=== PATIENT | male | born 1990 | race African-American/Black ===

== ENCOUNTER 2016-07-08 20:05 | Emergency (ER) | payer MEDICAID ==
[~2016-07-08] VITALS: Ht 185.4 cm; Wt 68.0 kg
[2016-07-08 20:50] VITALS: BP 118/72
[2016-07-08] MEDS ORDERED: BACTRIM-DS1 EA ORAL (21:21)
[2016-07-08 21:52] LABS: APPEARANCE,URINE CLEAR; KETONES,URINE NEGATIVE (NEGATIVE); LEUKOCYTE ESTERASE ,URINE NEGATIVE (NEGATIVE); NITRITE,URINE NEGATIVE (NEGATIVE); PH,URINE 6.5 (4.5-8.0); PROTEIN,URINE NEGATIVE (NEGATIVE); UROBILINOGEN,URINE NORMAL MG/DL (0.0-1.0)
[2016-07-08] MEDS ORDERED: Bactrim DS (160mg/800mg) tab ORAL ONE (22:00)
[2016-07-08 22:05] LABS: BACTERIA,URINE FEW /HPF; WBC,URINE 0-2 /HPF (0 - 0)
--- NOTE | 2016-07-10 07:47 | Emergency Room Report ---
History of Present Illness General Chief Complaint: Male Urogenital Problems Source: Patient Present Illness HPI Patient is a 25-year-old male presented after increased hematuria. Patient gradual onset of symptoms of the past one day. Patient denied any vomiting or abdominal pain. He had not been having any fever. He denied any recent flank pain. He denied penile discharge or other complaints. Allergies: Coded Allergies: No Known Allergies (Unverified , 07/08/16) Patient History Past Medical History: see triage record Reviewed Nursing Documentation: PMH: Agreed, PSxH: Agreed Nursing Documentation-PMH Past Medical History: No Stated History Review of Systems All Other Systems: negative except mentioned in HPI Physical Exam Vital Signs Date Time Temp Pulse Resp B/P Pulse Ox O2 Delivery O2 Flow Rate FiO2 07/08/16 20:40 97.5 61 17 118/72 100 Room Air General Appearance: well appearing, no apparent distress, alert, GCS 15 Head: normocephalic, atraumatic ENT: hearing grossly normal, normal voice Neck: full range of motion, supple Respiratory: no respiratory distress, speaking full sentences Cardiovascular #1: normal inspection, normal peripheral pulses, regular rate, rhythm Gastrointestinal: normal inspection, normal bowel sounds, non tender Musculoskeletal: normal inspection, back normal, no calf tenderness Neurologic: normal inspection, alert, oriented x3, responsive, normal gait Psychiatric: mood/affect normal Skin: no rash Medical Decision Making Diagnostic Impression: Primary Impression: Hematuria ER Course The patient is a 25-year-old male who presented after having increased hematuria. Differential diagnosis included was not limited to urinary tract infection, aortic aneurysm, kidney stone, bladder cancer, prostate disease among others. The patient reported having gross hematuria which was not associated with any flank pain. The patient was empirically given antibiotics. he was advised followup with urology. He is advised to have urine rechecked in 2 days. Labs Test 07/08/16 20:46 Urine Color Pale yellow Urine Appearance Clear Urine pH 6.5 (4.5-8.0) Urine Specific [place] 1.005 (1.005-1.035) Urine Protein Negative (NEGATIVE) Urine Glucose (UA) Negative (NEGATIVE) Urine Ketones Negative (NEGATIVE) Urine Occult Blood 5+ (NEGATIVE) Urine Nitrite Negative (NEGATIVE) Urine Bilirubin Negative (NEGATIVE) Urine Urobilinogen Normal MG/DL (0.0-1.0) Urine Leukocyte Esterase Negative (NEGATIVE) Urine RBC 10-15 /HPF (0 - 0) Urine WBC 0-2 /HPF (0 - 0) Urine Squamous Epithelial Cells None /LPF (NONE/OCC) Urine Bacteria Few /HPF (NONE) Last Vital Signs Date Time Temp Pulse Resp B/P Pulse Ox O2 Delivery O2 Flow Rate FiO2 07/08/16 21:49 97.5 81 17 118/72 100 Room Air Status: unchanged Disposition: HOME, SELF-CARE Condition: Stable Scripts Trimethoprim/Sulfamethoxazole (Bactrim Ds Tablet) 1 Each Tablet 1 TAB ORAL TWICE A DAY, #20 TAB Prov: Bernabe Luque 07/08/16 Referrals: [facility],REFERRING (PCP) Patient Instructions: Hematuria, Adult Bernabe Luque Jul 10, 2016 07:47
== END 2016-07-08 21:49 | disposition home or self-care (01) ==
LOC: EMR 21:05
DX: R31.9 Hematuria, unspecified (principal)
CPT/HCPCS: 81003; 99283

== ENCOUNTER 2016-07-10 19:47 | Emergency (ER) | payer MEDICAID ==
[~2016-07-10] VITALS: Ht 185.4 cm; Wt 68.0 kg
[~2016-07-10 19:47] MED LIST: BACTRIM-DS1 EA ORAL
--- NOTE | 2016-07-10 21:29 | Emergency Room Report ---
History of Present Illness General Chief Complaint: General Complaint Source: Patient Present Illness HPI [id number] came back to ED for 2-day recheck of hematuria seen on UA 2 days ago. Was Rx-ed Bactrim for presumed UTI. Patient endorses lifting heavy metal at job and recent increase in working out intensity at gym with weight-lifting. he showed me picture of urine from 2 days ago, gross hematuria. He denies dysuria, polyuria, discharge, sexual intercourse. States he is abstinent. Allergies: Coded Allergies: No Known Allergies (Unverified , 07/08/16) Patient History Past Medical History: none Past Surgical History: none Pertinent Family History: none Social History: Denies: alcohol use, drug use, smoking Immunizations: UTD Reviewed Nursing Documentation: PMH: Agreed, PSxH: Agreed Nursing Documentation-PMH Past Medical History: No History, Except For Review of Systems All Other Systems: negative except mentioned in HPI Physical Exam Vital Signs Date Time Temp Pulse Resp B/P Pulse Ox O2 Delivery O2 Flow Rate FiO2 07/10/16 20:13 63 14 114/65 100 Room Air Sp02 EP Interpretation: reviewed, normal General Appearance: normal inspection, well appearing, no apparent distress, alert Head: atraumatic ENT: normal ENT inspection, hearing grossly normal, normal voice Neck: normal inspection, full range of motion, supple, no bony tend Respiratory: normal inspection, lungs clear, normal breath sounds, no respiratory distress, no retraction, no wheezing Cardiovascular #1: regular rate, rhythm, no edema Gastrointestinal: normal inspection, normal bowel sounds, non tender, soft, no guarding, no hernia Genitourinary: no CVA tenderness Musculoskeletal: normal inspection, back normal, normal range of motion, Deng' s Sign negative Neurologic: normal inspection, alert, oriented x3, responsive, records administrator III-XII nml as tested, speech normal Psychiatric: normal inspection, judgement/insight normal, mood/affect normal Skin: normal inspection, normal color, no rash Lymphatic: normal inspection Medical Decision Making Diagnostic Impression: Primary Impression: Hematuria ER Course UA from 07/08: no wbc or leuks or nitrites. Unlikely UTI Advised to STOP Bactrim UA today: gross inspection is clear. No hematuria, UTI Dc home Last Vital Signs Date Time Temp Pulse Resp B/P Pulse Ox O2 Delivery O2 Flow Rate FiO2 07/10/16 20:13 63 14 114/65 100 Room Air Status: improved Disposition: HOME, SELF-CARE Referrals: [facility]ERR[facility] (PCP) LETICIA ERNANDEZ M.D. Jul 10, 2016 21:29
[2016-07-10 21:31] LABS: APPEARANCE,URINE CLEAR; KETONES,URINE NEGATIVE (NEGATIVE); LEUKOCYTE ESTERASE ,URINE NEGATIVE (NEGATIVE); NITRITE,URINE NEGATIVE (NEGATIVE); PH,URINE 8 (4.5-8.0); PROTEIN,URINE NEGATIVE (NEGATIVE); UROBILINOGEN,URINE NORMAL MG/DL (0.0-1.0)
[2016-07-10 22:14] VITALS: BP 114/65
== END 2016-07-10 22:09 | disposition home or self-care (01) ==
LOC: EMR 20:08
DX: R31.9 Hematuria, unspecified (principal)
CPT/HCPCS: 81003; 99282

== ENCOUNTER 2016-11-01 10:14 | Emergency (ER) | payer MEDICAID, OTHER ==
[~2016-11-01] VITALS: Ht 188 cm; Wt 72.6 kg
[2016-11-01] MEDS ORDERED: Lidocaine 2% 20mg/ml/Epi 0.005mg/ml 20ml vial ONE (10:19)
[2016-11-01] MEDS ORDERED: Lidocaine 1% 10mg/ml/Epi 0.005mg/ml 30ml vial INJ ONE (10:30)
[2016-11-01 10:35] VITALS: BP 139/74
[2016-11-01] MEDS ORDERED: Bacitracin Oint UD TOPIC ONE (10:51)
--- NOTE | 2016-11-01 11:40 | Diagnostic Imaging Report ---
Indication: Head trauma/pain Technique: Continuous helical CT scanning of the head was performed utilizing automated exposure control without intravenous contrast material. Axial and coronal reconstructions were obtained. Comparison: None CT dose: Total DLP 1386 mGycm; CTDI vol 70.4 mGy Findings: There is no acute intracranial hemorrhage, mass effect or cortical edema. The ventricles, cisterns and sulci are within normal limits. The posterior fossa and fourth ventricle are unremarkable. Sellar and suprasellar regions are grossly unremarkable. Visualized mastoid air cells and paranasal sinuses are unremarkable. Right periorbital and posterior scalp swelling/hematoma are noted. There is no skull fracture. Impression: No evidence of acute intracranial hemorrhage, mass effect or cortical edema. Right periorbital and posterior scalp swelling. No skull fracture. The CT scanner at [facility] is accredited by the [employer] and the scans are performed using protocols designed to limit radiation exposure to as low as reasonably achievable to attain images of sufficient resolution adequate for diagnostic evaluation.
--- NOTE | 2016-11-01 11:42 | Diagnostic Imaging Report ---
Indication: Neck pain Technique: CT cervical spine was performed utilizing automated exposure control without intravenous contrast material. Axial and coronal images were generated. CT dose: Total DLP 412 mGycm; CTDI vol 18.4 mGy Comparison: None Findings: There is no acute fracture or cervical malalignment. Prevertebral soft tissues are within normal limits. Bone mineralization is normal. Disc spaces are within normal limits. Visualized lung apices are clear. Impression: No acute fracture or cervical malalignment. The CT scanner at [facility] is accredited by the [employer] and the scans are performed using protocols designed to limit radiation exposure to as low as reasonably achievable to attain images of sufficient resolution adequate for diagnostic evaluation.
[2016-11-01] MEDS ORDERED: IBUPROFEN600 MG ORAL (11:52)
[2016-11-01 12:21] VITALS: BP 100/56
[2016-11-01 12:24] VITALS: BP 100/56
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
== END 2016-11-01 12:26 | disposition home or self-care (01) ==
LOC: EDBD 10:14 → EMR 10:33
DX: S01.111A Laceration without foreign body of right eyelid and periocular area, initial encounter (principal); M54.2 Cervicalgia; R51 Headache; Y04.2XXA Assault by strike against or bumped into by another person, initial encounter; Y92.89 Other specified places as the place of occurrence of the external cause
CPT/HCPCS: 70450; 72125

== ENCOUNTER 2016-11-06 21:10 | Emergency (ER) | payer MEDICAID, OTHER ==
[~2016-11-06] VITALS: Ht 185.4 cm; Wt 69.9 kg
[~2016-11-06 21:10] MED LIST changes: +IBUPROFEN600 MG ORAL
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
[2016-11-06 22:37] VITALS: BP 126/76
== END 2016-11-06 22:40 | disposition home or self-care (01) ==
LOC: EMR 21:43
DX: H11.32 Conjunctival hemorrhage, left eye (principal)
CPT/HCPCS: 99282